=== PATIENT | male | born 1985 | race Caucasian/White ===

== ENCOUNTER 2018-09-01 15:28 | Emergency (ER) | payer OTHER ==
[~2018-09-01] VITALS: Ht 188 cm; Wt 116.1 kg
[2018-09-01 15:34] VITALS: BP 119/60
--- NOTE | 2018-09-01 15:36 | NUR ---
TO ED LOBBY AWAITING BED. WITH HOSPITAL NURSE LIAISON.
--- NOTE | 2018-09-01 16:00 | NUR ---
PT SENT TO [facility] VIA W/C [employer] TECH.
--- NOTE | 2018-09-01 16:12 | NUR ---
PT BACK FROM XRAY TO ER ROOM 6
--- NOTE | 2018-09-01 16:20 | NUR ---
PT BIB BUSINESS ADMINISTRATION PROGRAM CHAIR C/O RT KNEE SMALL ABRASION S/P FALL. NO ACTIVE BLEEDING AT THIS TIME. NO JOINT DEFORMITY NOTED. +ROM. PERIPHERAL PULSES PRESENT. CAP REFILL <3 SECS. PT IS NONVERBAL; NO OBVIOUS SIGNS OF PAIN NOTED. VSS.
[2018-09-01] MEDS ORDERED: BACITRACIN OINT 500 UNITS/GM PKT TP ONE (17:30)
[2018-09-01 18:26] VITALS: BP 117/76
== END 2018-09-01 18:21 | disposition home or self-care (01) ==
LOC: MED 15:28
DX: S80.02XA Contusion of left knee, initial encounter (principal); S80.01XA Contusion of right knee, initial encounter; W19.XXXA Unspecified fall, initial encounter; Y93.89 Activity, other specified; Y92.89 Other specified places as the place of occurrence of the external cause; Y99.8 Other external cause status
CPT/HCPCS: 73560; 99283